=== PATIENT | male | born 1980 | race Caucasian/White ===

== ENCOUNTER 2023-05-02 04:25 | Emergency (ER) | payer OTHER ==
[~2023-05-02] VITALS: Ht 177.8 cm; Wt 99.8 kg
[2023-05-02 04:25] VITALS: BP 139/77; PULSE 85; RESP 17; TEMP 98; O2SAT 99
[2023-05-02] MEDS ORDERED: ALBUTEROL SULFATE/IPRATROPIU 3 ML SOL IH ONE (05:20)
[2023-05-02] MEDS ORDERED: KETOROLAC 30 MG/ML VIAL IM ONE (05:25)
[2023-05-02 05:27] VITALS: PULSE 80; RESP 14; O2SAT 99
[2023-05-02] MEDS ORDERED: predniSONE 20 MG TAB PO ONE (06:05)
[2023-05-02] MEDS ORDERED: ROBAC PO (06:09)
[2023-05-02] MEDS ORDERED: AMOX500C25 PO (06:09)
[2023-05-02] MEDS ORDERED: ALBU0.0912 IH (06:09)
[2023-05-02 06:20] VITALS: BP 139/77; PULSE 80; RESP 14; TEMP 98; O2SAT 99
[2023-05-03] MEDS ORDERED: ROB PO (09:24)
== END 2023-05-02 06:20 | disposition home or self-care (01) ==
LOC: MED 04:25
DX: U07.1 COVID-19 (principal); E11.9 Type 2 diabetes mellitus without complications; Z98.2 Presence of cerebrospinal fluid drainage device; Z79.899 Other long term (current) drug therapy; Z79.2 Long term (current) use of antibiotics
CPT/HCPCS: 71045; 87426; 94640; 96372; 99284; J1885; Q0092

== ENCOUNTER 2023-05-03 07:09 | Emergency (ER) | payer OTHER ==
[~2023-05-03] VITALS: Ht 172.7 cm; Wt 100.2 kg
[~2023-05-03 07:09] MED LIST: ALBU0.0912 IH; AMOX500C25 PO; ROBAC PO
[2023-05-03 07:18] VITALS: BP 113/67; PULSE 79; RESP 20; TEMP 97.8; O2SAT 96
[2023-05-03 08:01] LABS: BASOPHILS % (AUTO) 0.3 % (0.0-2.0); EOSINOPHILS # (AUTO) 0.1 K/uL (0-0.4); EOSINOPHILS % (AUTO) 1.3 % (0.0-4.0); HEMATOCRIT 37.5 % (36-52); HEMOGLOBIN 12.7 g/dL (12.0-18.0); LYMPHOCYTES % (AUTO) 19.5 % (20.5-51.1); MEAN CORPUSCULAR HEMOGLOBIN 28 pg (27-31); MEAN CORPUSCULAR HGB CONC 34 g/dL (33-37); MEAN CORPUSCULAR VOLUME 82.8 fL (80-94); MONOCYTES # (AUTO) 0.5 K/uL (0.8-1.0); MONOCYTES % (AUTO) 5.3 % (1.7-9.3); NEUTROPHILS # (AUTO) 7.5 K/uL (1.8-7.7); NEUTROPHILS % (AUTO) 73.6 % (42.2-75.2); PLATELET COUNT (AUTO) 131 K/uL (140-450); RED BLOOD CELL COUNT(AUTO) 4.54 MIL/uL (4.20-6.10); RED CELL DISTRIBUTION WIDTH 12.9 % (11.6-13.7); WHITE BLOOD COUNT (AUTO) 10.1 K/uL (4.8-10.8)
[2023-05-03 08:32] LABS: ALANINE AMINOTRANSFERASE 32 U/L (12-78); ALBUMIN 3.4 g/dL (3.4-5.0); ALKALINE PHOSPHATASE 90 U/L (50-136); ANION GAP 10.5 (8-16); ASPARTATE AMINOTRANSFERASE 17 U/L (15-37); CARBON DIOXIDE 27.3 mmol/L (21-32); CHLORIDE 100 mmol/L (98-107); CREATININE 0.8 mg/dL (0.6-1.3); GFR ARICAN-AMERICAN 136 mL/min (>90); GFR NON ARICAN-AMERICAN 113 mL/min (>90); GLUCOSE 161 mg/dL (74-106); POTASSIUM 3.8 mmol/L (3.5-5.1); SODIUM SERUM 134 mmol/L (136-145); TOTAL PROTEIN, SERUM 7.2 g/dL (6.4-8.2); UREA NITROGEN, BLOOD 10 mg/dL (7-18)
[2023-05-03] MEDS ORDERED: DICYCLOMINE HCL LIQUID 20 MG, ALUMINUM HYD/MAG/SIMETHICONE 30 ML, LIDOCAINE VISCOUS 2% ... PO ONE ×3 (08:45)
[2023-05-03] MEDS ORDERED: DICYCLOMINE HCL LIQUID 10 MG/5 ML UDC ONE (08:56)
[2023-05-03] MEDS ORDERED: ALUMINUM HYD/MAG/SIMETHICONE 30 ML UDC ONE (08:56)
[2023-05-03 09:14] VITALS: BP 111/67; PULSE 79; RESP 20; TEMP 97.8; O2SAT 96
[2023-05-03 09:20] LABS: LIPASE 14 U/L (16-77)
[2023-05-03] MEDS ORDERED: ROB PO (09:24)
== END 2023-05-03 09:36 | disposition home or self-care (01) ==
LOC: MED 07:09
DX: U07.1 COVID-19 (principal); J12.82 Pneumonia due to coronavirus disease 2019; J06.9 Acute upper respiratory infection, unspecified; E11.9 Type 2 diabetes mellitus without complications; Z79.899 Other long term (current) drug therapy; Z79.2 Long term (current) use of antibiotics
CPT/HCPCS: 36415; 71045; 80053; 83690; 84484; 85025; 85379; 93005; 99285

== ENCOUNTER 2024-01-10 13:57 | Inpatient (IN) | payer MEDICARE, OTHER ==
[~2024-01-10] VITALS: Ht 177.8 cm; Wt 102.1 kg
[~2024-01-10 13:57] MED LIST changes: +ROB PO
[2024-01-10 14:00] VITALS: PULSE 88; RESP 19; TEMP 99.8; O2SAT 94
[2024-01-10 15:17] LABS: BASOPHILS # (AUTO) 0.1 K/uL (0.00-0.22); BASOPHILS % (AUTO) 0.6 % (0.0-2.0); HEMATOCRIT 37.1 % (36-52); HEMOGLOBIN 12.8 g/dL (12.0-18.0); LYMPHOCYTES # (AUTO) 0.6 K/uL (2.0-11.5); LYMPHOCYTES % (AUTO) 6.1 % (20.5-51.1); MEAN CORPUSCULAR HEMOGLOBIN 28 pg (27-31); MEAN CORPUSCULAR HGB CONC 35 g/dL (33-37); MEAN CORPUSCULAR VOLUME 81.9 fL (80-94); MONOCYTES # (AUTO) 4.1 K/uL (0.8-1.0); MONOCYTES % (AUTO) 44.7 % (1.7-9.3); NEUTROPHILS # (AUTO) 4.5 K/uL (1.8-7.7); NEUTROPHILS % (AUTO) 48.6 % (42.2-75.2); PLATELET COUNT (AUTO) 139 K/uL (140-450); RED BLOOD CELL COUNT(AUTO) 4.53 MIL/uL (4.20-6.10); RED CELL DISTRIBUTION WIDTH 12.9 % (11.6-13.7); WHITE BLOOD COUNT (AUTO) 9.2 K/uL (4.8-10.8)
[2024-01-10 15:27] LABS: ANION GAP 12.4 (8-16); CALCIUM 9.1 mg/dL (8.5-10.1); CARBON DIOXIDE 26.7 mmol/L (21-32); CREATININE 0.9 mg/dL (0.6-1.3); POTASSIUM 4.1 mmol/L (3.5-5.1)
[2024-01-10 15:36] LABS: LACTIC ACID 1.4 mmol/L (0.4-2.0)
[2024-01-10] MEDS ORDERED: METF-1139 PO (16:35)
[2024-01-10] MEDS ORDERED: LEVO0.1211 PO (16:35)
[2024-01-10] MEDS ORDERED: HYDR-3926 PO (16:35)
[2024-01-10] MEDS ORDERED: cefTRIAXone 1,000 MG VIAL ONE (17:07)
[2024-01-10] MEDS ORDERED: AZITHROMYCIN 500 MG INJ VIAL IV ONE (17:08)
[2024-01-10] MEDS: AZITHROMYCIN 500 MG in DEXTROSE 5% 250 ML IV ONE (17:26)
[2024-01-10] MEDS ORDERED: LORazepam 1 MG TAB PO PRN (18:25)
[2024-01-10] MEDS ORDERED: hydrALAZINE 20 MG/ML VIAL IVP PRN (18:25)
[2024-01-10] MEDS ORDERED: ZOLPIDEM 5 MG TAB PO PRN (18:25)
[2024-01-10] MEDS ORDERED: HYDROcodone/APAP 5/325 MG 1 TAB TAB PO PRN (18:25)
[2024-01-10] MEDS ORDERED: DEXTROSE 50% 50 ML SYR IVP PRN (18:30)
[2024-01-10] MEDS ORDERED: ACETAMINOPHEN EXTRA STRENGTH 500 MG TAB ONE (19:41)
[2024-01-10] MEDS: ACETAMINOPHEN EXTRA STRENGTH 500 MG TAB PO ONE (19:46)
[2024-01-10 20:00] VITALS: BP 115/76; PULSE 96; RESP 18; TEMP 101.2; O2SAT 96
[2024-01-10] MEDS: NACL 0.9% 1,000 ML IV SCH (20:07)
[2024-01-10 20:25] VITALS: PULSE 96; PULSE 97; RESP 18; O2SAT 95
[2024-01-10] MEDS ORDERED: LORazepam 2 MG/ML VIAL IVP PRN (21:10)
[2024-01-10] MEDS: HYDROCORTISONE 10 MG TAB PO SCH ×2 (21:19→22:35)
[2024-01-10] MEDS: BLOOD GLUCOSE MONITORING 1 DEV DEV FS SCH (21:23)
[2024-01-10] MEDS: INSULIN LISPRO SLIDING SCALE 100 UNITS/ML VIAL SUBQ PRN (21:50)
[2024-01-10] MEDS: ACETAMINOPHEN 325 MG TAB PO PRN (23:55)
[2024-01-11] VITALS (9 sets, daily range): BP systolic 94–154; BP diastolic 41–93; PULSE 64–100; RESP 17–20; TEMP 97.2–98.8; O2SAT 92–99
[2024-01-11] MEDS: BENZONATATE 100 MG CAPLF PO PRN (02:15)
[2024-01-11 05:40] LABS: BASOPHILS % (AUTO) 0.3 % (0.0-2.0); EOSINOPHILS % (AUTO) 0.1 % (0.0-4.0); HEMOGLOBIN 12.7 g/dL (12.0-18.0); LYMPHOCYTES # (AUTO) 0.7 K/uL (2.0-11.5); LYMPHOCYTES % (AUTO) 10.8 % (20.5-51.1); MEAN CORPUSCULAR HEMOGLOBIN 28 pg (27-31); MEAN CORPUSCULAR HGB CONC 34 g/dL (33-37); MEAN CORPUSCULAR VOLUME 82.4 fL (80-94); MONOCYTES # (AUTO) 0.4 K/uL (0.8-1.0); MONOCYTES % (AUTO) 5.9 % (1.7-9.3); NEUTROPHILS # (AUTO) 5.6 K/uL (1.8-7.7); NEUTROPHILS % (AUTO) 82.9 % (42.2-75.2); PLATELET COUNT (AUTO) 136 K/uL (140-450); RED BLOOD CELL COUNT(AUTO) 4.49 MIL/uL (4.20-6.10); RED CELL DISTRIBUTION WIDTH 13.1 % (11.6-13.7); WHITE BLOOD COUNT (AUTO) 6.8 K/uL (4.8-10.8)
[2024-01-11 06:16] LABS: ALBUMIN 3.1 g/dL (3.4-5.0); ANION GAP 12.8 (8-16); CALCIUM 8.7 mg/dL (8.5-10.1); CARBON DIOXIDE 28.4 mmol/L (21-32); CREATININE 0.8 mg/dL (0.6-1.3); POTASSIUM 4.2 mmol/L (3.5-5.1); TOTAL BILIRUBIN 0.8 mg/dL (0.0-1.0)
[2024-01-11] MEDS: LEVOTHYROXINE 0.025 MG TAB PO SCH (06:20)
[2024-01-11] MEDS: DOCUSATE SODIUM 100 MG GELCAP PO SCH (08:25)
[2024-01-11] MEDS: PANTOPRAZOLE 40 MG INJ VIAL IVP SCH (08:25)
[2024-01-11] MEDS: AZITHROMYCIN 500 MG in DEXTROSE 5% 250 ML IV SCH (17:46)
[2024-01-12] VITALS (8 sets, daily range): BP systolic 100–136; BP diastolic 58–71; PULSE 63–92; RESP 17–19; TEMP 97.3–100.7; O2SAT 90–97
[2024-01-12 05:33] LABS: BASOPHILS % (AUTO) 0.6 % (0.0-2.0); HEMATOCRIT 36.1 % (36-52); HEMOGLOBIN 12.7 g/dL (12.0-18.0); LYMPHOCYTES # (AUTO) 0.7 K/uL (2.0-11.5); LYMPHOCYTES % (AUTO) 15.4 % (20.5-51.1); MEAN CORPUSCULAR HEMOGLOBIN 29 pg (27-31); MEAN CORPUSCULAR HGB CONC 35 g/dL (33-37); MEAN CORPUSCULAR VOLUME 81.7 fL (80-94); MONOCYTES # (AUTO) 0.4 K/uL (0.8-1.0); MONOCYTES % (AUTO) 8.8 % (1.7-9.3); NEUTROPHILS # (AUTO) 3.5 K/uL (1.8-7.7); NEUTROPHILS % (AUTO) 74.2 % (42.2-75.2); PLATELET COUNT (AUTO) 132 K/uL (140-450); RED BLOOD CELL COUNT(AUTO) 4.42 MIL/uL (4.20-6.10); RED CELL DISTRIBUTION WIDTH 12.8 % (11.6-13.7); WHITE BLOOD COUNT (AUTO) 4.7 K/uL (4.8-10.8)
[2024-01-12 06:26] LABS: ALBUMIN 2.7 g/dL (3.4-5.0); ANION GAP 11.7 (8-16); CALCIUM 8.4 mg/dL (8.5-10.1); CARBON DIOXIDE 27.5 mmol/L (21-32); POTASSIUM 4.2 mmol/L (3.5-5.1); TOTAL BILIRUBIN 0.6 mg/dL (0.0-1.0); TOTAL PROTEIN, SERUM 3.9 g/dL (6.4-8.2)
[2024-01-12 06:51] LABS: CREATININE 0.7 mg/dL (0.6-1.3)
[2024-01-12] MEDS: ONDANSETRON 4 MG/2 ML VIAL IVP PRN (10:15)
[2024-01-12] MEDS: PIPERACILLIN/TAZOBACTAM 3.375 GM in DEXTROSE 5% 50 ML IV SCH (13:26)
[2024-01-13] VITALS: BP 125/75; PULSE 72; RESP 18; TEMP 97.9; O2SAT 95
[2024-01-13 02:00] VITALS: BP 121/71; PULSE 63; RESP 17; TEMP 98; O2SAT 93
[2024-01-13 04:00] VITALS: BP 101/55; PULSE 60; RESP 16; TEMP 97.8; O2SAT 98
[2024-01-13 05:41] LABS: BASOPHILS % (AUTO) 0.9 % (0.0-2.0); EOSINOPHILS # (AUTO) 0.1 K/uL (0-0.4); EOSINOPHILS % (AUTO) 3.5 % (0.0-4.0); HEMATOCRIT 35.1 % (36-52); HEMOGLOBIN 12.5 g/dL (12.0-18.0); LYMPHOCYTES # (AUTO) 0.9 K/uL (2.0-11.5); LYMPHOCYTES % (AUTO) 23.4 % (20.5-51.1); MEAN CORPUSCULAR HEMOGLOBIN 29 pg (27-31); MEAN CORPUSCULAR HGB CONC 36 g/dL (33-37); MEAN CORPUSCULAR VOLUME 80.9 fL (80-94); MONOCYTES # (AUTO) 0.5 K/uL (0.8-1.0); MONOCYTES % (AUTO) 12.9 % (1.7-9.3); NEUTROPHILS # (AUTO) 2.2 K/uL (1.8-7.7); NEUTROPHILS % (AUTO) 59.3 % (42.2-75.2); PLATELET COUNT (AUTO) 140 K/uL (140-450); RED BLOOD CELL COUNT(AUTO) 4.34 MIL/uL (4.20-6.10); RED CELL DISTRIBUTION WIDTH 13.1 % (11.6-13.7); WHITE BLOOD COUNT (AUTO) 3.7 K/uL (4.8-10.8)
[2024-01-13 06:18] LABS: ALBUMIN 2.9 g/dL (3.4-5.0); ANION GAP 11.8 (8-16); CALCIUM 9.1 mg/dL (8.5-10.1); CARBON DIOXIDE 27.7 mmol/L (21-32); CREATININE 0.7 mg/dL (0.6-1.3); POTASSIUM 4.5 mmol/L (3.5-5.1); TOTAL BILIRUBIN 0.6 mg/dL (0.0-1.0)
[2024-01-13 08:00] VITALS: BP 124/57; PULSE 71; RESP 18; TEMP 97.5; O2SAT 94
[2024-01-13] MEDS ORDERED: BENZ100C6 PO (10:23)
[2024-01-13] MEDS ORDERED: LEVO750T75 PO (10:23)
[2024-01-13] MEDS ORDERED: MUC600 PO (10:23)
[2024-01-13 11:26] VITALS: O2SAT 95
== END 2024-01-13 13:16 | disposition home or self-care (01) | DRG 871 ==
LOC: MED 13:57 → MTU 18:27
PROVIDERS: ADMIT Student in an Organized Health Care Education/Training Program; ATTEND Student in an Organized Health Care Education/Training Program
DX: A41.9 Sepsis, unspecified organism (principal); J15.69 Pneumonia due to other Gram-negative bacteria; J96.01 Acute respiratory failure with hypoxia; J15.9 Unspecified bacterial pneumonia; E11.9 Type 2 diabetes mellitus without complications; Z79.899 Other long term (current) drug therapy; Z79.4 Long term (current) use of insulin
CPT/HCPCS: 36415; 71045; 71275; 80048; 80053; 82948; 83605; 83880; 84484; 85025; 85651; 86140; 87040; 87081; 89220; 93005; 96365; 96368; 99291; C9113; J0456; J0696; J1815; J2405; J2543; J7060; Q0092; Q9967